=== PATIENT | male | born 1990 | race African-American/Black ===

== ENCOUNTER 2020-12-13 16:12 | Emergency (ER) | payer MEDICAID ==
[~2020-12-13] VITALS: Ht 170.2 cm; Wt 70.2 kg
[2020-12-13 16:42] VITALS: BP 108/50
--- NOTE | 2020-12-13 17:28 | NUR ---
MEDICATION REQUEST SENT TO PHARMACY
[2020-12-13] MEDS ORDERED: PSEUDOEPHEDRINE 30 MG TABLET PO PRN (18:00)
== END 2020-12-13 18:30 | disposition home or self-care (01) ==
LOC: ED 18:04
DX: J01.00 Acute maxillary sinusitis, unspecified (principal); B97.89 Other viral agents as the cause of diseases classified elsewhere; R51.9 Headache, unspecified
CPT/HCPCS: 99283